=== PATIENT | male | born 1965 ===

== ENCOUNTER 2022-07-19 08:45 | Emergency (ER) | payer SELFPAY ==
[~2022-07-19] VITALS: Ht 182.9 cm; Wt 86.4 kg
[2022-07-19 08:54] VITALS: BP 160/101
== END 2022-07-19 10:00 | disposition left against medical advice (07) ==
LOC: ER 08:46
DX: T14.8XXA Other injury of unspecified body region, initial encounter (principal); Z53.21 Procedure and treatment not carried out due to patient leaving prior to being seen by health care provider; W54.0XXA Bitten by dog, initial encounter; Y93.89 Activity, other specified; Y92.89 Other specified places as the place of occurrence of the external cause; Y99.8 Other external cause status